=== PATIENT | male | born 1985 | race Caucasian/White ===

== ENCOUNTER 2019-06-04 01:15 | Emergency (ER) | payer OTHER ==
[~2019-06-04] VITALS: Ht 193 cm; Wt 104.4 kg
[2019-06-04 01:16] VITALS: BP 145/69
--- NOTE | 2019-06-04 10:37 | REP ---
The index finger series: Four views. History: Trauma. Findings: Four views of the index finger demonstrate soft tissue swelling about the distal phalanx. No fracture or subluxation is evident. Impression: No fracture seen. Electronically Signed by Geoff Frank MD 06/04/2019 10:28 A
== END 2019-06-04 03:15 | disposition home or self-care (01) ==
LOC: M ED 01:15
DX: S60.022A Contusion of left index finger without damage to nail, initial encounter (principal); W23.0XXA Caught, crushed, jammed, or pinched between moving objects, initial encounter; Y92.89 Other specified places as the place of occurrence of the external cause; Y99.1 Military activity